=== PATIENT | male | born 1980 | race Two or more races ===

== ENCOUNTER 2022-07-14 16:55 | Inpatient (IN) | payer OTHER ==
[2022-07-14 17:34] VITALS: BMI 22.8
[2022-07-14] MEDS ORDERED: MAGNESIUM HYDROX 2400MG/30ML ORAL SUSPENSION 30 ML CUP PO PRN (17:51)
[2022-07-14] MEDS ORDERED: IBUPROFEN 600 MG TABLET (FP) PO PRN (17:51)
[2022-07-14] MEDS ORDERED: hydrOXYzine PAMOATE 25 MG CAPSULE (FP) PO PRN (17:51)
[2022-07-14] MEDS ORDERED: ACETAMINOPHEN 325 MG TABLET (FP) PO PRN (17:51)
[2022-07-14] MEDS ORDERED: MAG HYDROX/AL HYDROX/SIMETH 30 ML UNIT-DOSE CUP PO PRN (17:51)
[2022-07-14] MEDS ORDERED: POLYETHYLENE GLYCOL (HEALTHYLAX) 3350 17 GM PACKET PO PRN (17:51)
[2022-07-14] MEDS ORDERED: ONDANSETRON *ODT* 4 MG TABLET SL PRN (17:51)
[2022-07-14] MEDS ORDERED: BISMUTH SUBSALICYLATE 524 MG/30 ML PO PRN (17:51)
[2022-07-14] MEDS ORDERED: BENZOCAINE/MENTHOL (CHLORASEPTIC ) LOZENGE MM PRN (17:51)
[2022-07-14] MEDS ORDERED: BENZONATATE 200 MG CAPSULE PO PRN (17:51)
[2022-07-14] MEDS ORDERED: DICYCLOMINE HCL 10 MG CAPSULE PO PRN (17:51)
[2022-07-14] MEDS ORDERED: P-EPHED 60MG/TRIPROLIDI 2.5MG TABLET PO PRN (17:51)
[2022-07-14] MEDS ORDERED: LOPERAMIDE HCL 2 MG CAPSULE PO PRN (17:51)
[2022-07-14] MEDS ORDERED: guaiFENesin 600 MG TABLET.ER (FP) PO PRN (17:51)
[2022-07-14] MEDS ORDERED: MELATONIN 5 MG TABLETS PO PRN (17:51)
[2022-07-14] MEDS ORDERED: IBUPROFEN 400 MG TABLET (FP) PO PRN (17:51)
[2022-07-14] MEDS: THIAMINE HCL 100 MG TABLET (FP) PO SCH (23:02)
[2022-07-15] MEDS ORDERED: PRENATAL VITAMINS W/ FOLIC ACID TABLET (FP) PO SCH (10:00)
[2022-07-15 10:30] LABS: HEMATOCRIT 36.9 % (35.4-49); HEMOGLOBIN 12.7 GM/dL (11.7-16.9); MCH 33.7 pg (25.7-33.7); MCHC 34.4 g/dl (32.0-35.9); MEAN CELL VOLUME 98.1 fl (80-96); MEAN PLT VOLUME 8.4 fl (7.5-11.1); PLATELET COUNT 307 10^3/uL (134-434); RBC 3.76 M/mm3 (4.00-5.60); RDW 14.6 % (11.9-15.9); WHITE BLOOD COUNT 6.2 K/mm3 (4.0-10.0)
[2022-07-15 10:48] LABS: ALBUMIN 3.2 g/dl (3.4-5.0); CALCIUM 9.4 mg/dL (8.5-10.1)
[2022-07-15 10:51] LABS: CREATININE 0.8 mg/dL (0.55-1.3)
[2022-07-15 10:52] LABS: TOT PROT 6.8 g/dl (6.4-8.2)
[2022-07-15 10:53] LABS: BILIRUBIN,TOTAL 0.5 mg/dL (0.2-1)
[2022-07-15] MEDS: THIAMINE HCL 100 MG TABLET (FP) PO SCH (23:26)
[2022-07-16 07:26] VITALS: BP 113/71; PULSE 70; RESP 16; TEMP 97.7
== END 2022-07-16 07:09 | disposition home or self-care (01) | DRG 775 ==
LOC: YASAS 16:55 → Y3N 18:27 → Y6N 07-16 06:24
PROVIDERS: ADMIT Allergy & Immunology; ATTEND Surgery
PROC: HZ2ZZZZ Detoxification Services for Substance Abuse Treatment (ICD-10-PCS; principal; 2022-07-14)
DX: F10.230 Alcohol dependence with withdrawal, uncomplicated (principal); F17.210 Nicotine dependence, cigarettes, uncomplicated; U07.1 COVID-19; Z28.310 Unvaccinated for COVID-19; Z28.9 Immunization not carried out for unspecified reason
CPT/HCPCS: 36415; 80053; 85027; 86780; 87811; C9803-CS; U0003; U0005